=== PATIENT | male | born 1985 | race Caucasian/White ===

== ENCOUNTER 2016-12-19 10:44 | Inpatient (IN) | payer MEDICAID ==
[~2016-12-19] VITALS: Ht 195.6 cm; Wt 98.7 kg
[2016-12-19 11:41] LABS: microscopic required? NO
[2016-12-19 11:50] LABS: UA SPECIFIC GRAVITY <=1.005 (1.005-1.035); urine erythrocyte NEGATIVE (NEGATIVE)
[2016-12-19 11:55] LABS: PLATELET COUNT 213 x10^3mcL (130-400); RED CELL DISTRIBUTION WIDTH 12.1 % (11.5-14.5)
[2016-12-19 11:58] LABS: ALBUMIN 3.8 g/dL (3.4-5.0); ALKALINE PHOSPHATASE 108 U/L (46-116); ALT/SGPT 27 U/L (16-63); AST/SGOT 20 U/L (15-37); BASOPHIL % 0 % (0-2); BILIRUBIN TOTAL 0.8 mg/dL (0.20-1.00); CALCIUM 9.8 mg/dL (8.5-10.1); CARBON DIOXIDE 21.6 mmol/L (21-32); CHLORIDE SERUM 101 mmol/L (98-107); CREATININE SERUM 1.2 mg/dL (0.7-1.3); GFR1 > 60 mL/min; LIPASE 89 IU/L (73-393); POTASSIUM SERUM 3.2 mmol/L (3.5-5.1); SODIUM SERUM 142 mmol/L (136-145); TOTAL PROTEIN, SERUM 7.1 g/dL (6.4-8.2)
[2016-12-19 12:00] LABS: GLUCOSE SERUM 481 mg/dL (74-106)
[2016-12-19 12:04] LABS: AMPHETAMINE QUAL UR NONE DETECTED (NEG <=1000)
[2016-12-19 14:32] VITALS: Ht 195.6 cm; Wt 98.7 kg
[2016-12-19 15:29] LABS: FREE T4 1.61 ng/dL (0.76-1.46); T4(THYROXINE) 10.9 ug/dL (4.7-13.3)
[2016-12-19 15:30] LABS: CHOLESTEROL/HDL RATIO 4.5
[2016-12-19 15:36] LABS: T3 TOTAL 1.13 ng/mL
[2016-12-19 15:48] VITALS: BP 109/69
[2016-12-19 17:26] LABS: CARBON DIOXIDE 24.8 mmol/L (21-32); CHLORIDE SERUM 110 mmol/L (98-107); CREATININE SERUM 0.8 mg/dL (0.7-1.3); GFR1 > 60 mL/min; GLUCOSE SERUM 234 mg/dL (74-106); PHOSPHOROUS 3.2 mg/dL (2.5-4.9); POTASSIUM SERUM 3.7 mmol/L (3.5-5.1); SODIUM SERUM 147 mmol/L (136-145)
[2016-12-19 19:30] VITALS: BP 117/69
[2016-12-19 20:54] LABS: CALCIUM 9.2 mg/dL (8.5-10.1); CARBON DIOXIDE 27.7 mmol/L (21-32); CHLORIDE SERUM 110 mmol/L (98-107); CREATININE SERUM 0.9 mg/dL (0.7-1.3); GFR1 > 60 mL/min; GLUCOSE SERUM 148 mg/dL (74-106); PHOSPHOROUS 4.5 mg/dL (2.5-4.9); SODIUM SERUM 147 mmol/L (136-145)
[2016-12-19 23:04] VITALS: BP 130/88
[2016-12-20 01:09] LABS: CALCIUM 8.6 mg/dL (8.5-10.1); CARBON DIOXIDE 25.5 mmol/L (21-32); CHLORIDE SERUM 112 mmol/L (98-107); CREATININE SERUM 0.9 mg/dL (0.7-1.3); GFR1 > 60 mL/min; GLUCOSE SERUM 132 mg/dL (74-106); MAGNESIUM 1.8 mg/dL (1.8-2.4); PHOSPHOROUS 3.6 mg/dL (2.5-4.9); POTASSIUM SERUM 3.2 mmol/L (3.5-5.1); SODIUM SERUM 146 mmol/L (136-145)
[2016-12-20 03:35] VITALS: BP 120/75
[2016-12-20 05:30] LABS: BASOPHIL % 0.2 % (0-2); PLATELET COUNT 186 x10^3mcL (130-400); RED CELL DISTRIBUTION WIDTH 12.6 % (11.5-14.5)
[2016-12-20 05:37] LABS: CALCIUM 8.7 mg/dL (8.5-10.1); CHLORIDE SERUM 111 mmol/L (98-107); CREATININE SERUM 0.8 mg/dL (0.7-1.3); GFR1 > 60 mL/min; GLUCOSE SERUM 187 mg/dL (74-106); MAGNESIUM 1.5 mg/dL (1.8-2.4); PHOSPHOROUS 4.7 mg/dL (2.5-4.9); POTASSIUM SERUM 3.4 mmol/L (3.5-5.1); SODIUM SERUM 146 mmol/L (136-145)
[2016-12-20 08:06] VITALS: BP 132/97
[2016-12-20 09:18] LABS: CALCIUM 8.7 mg/dL (8.5-10.1); CARBON DIOXIDE 23.1 mmol/L (21-32); CHLORIDE SERUM 108 mmol/L (98-107); CREATININE SERUM 0.9 mg/dL (0.7-1.3); GFR1 > 60 mL/min; GLUCOSE SERUM 260 mg/dL (74-106); MAGNESIUM 1.6 mg/dL (1.8-2.4); POTASSIUM SERUM 3.5 mmol/L (3.5-5.1); SODIUM SERUM 142 mmol/L (136-145)
[2016-12-20 11:52] VITALS: BP 151/88
[2016-12-20 15:43] VITALS: BP 156/88
[2016-12-20 19:45] VITALS: BP 140/67
[2016-12-21 03:22] VITALS: BP 134/76
[2016-12-21 05:27] LABS: CALCIUM 8.4 mg/dL (8.5-10.1); CARBON DIOXIDE 24.8 mmol/L (21-32); CHLORIDE SERUM 106 mmol/L (98-107); CREATININE SERUM 0.9 mg/dL (0.7-1.3); GFR1 > 60 mL/min; GLUCOSE SERUM 276 mg/dL (74-106); MAGNESIUM 1.6 mg/dL (1.8-2.4); POTASSIUM SERUM 3.4 mmol/L (3.5-5.1); SODIUM SERUM 140 mmol/L (136-145)
[2016-12-21 08:00] VITALS: BP 141/95
[2016-12-21] MEDS ORDERED: GLUCOTROL5 MG PO (10:15)
[2016-12-21 10:18] VITALS: BP 141/95
== END 2016-12-21 10:55 | disposition home or self-care (01) | DRG 420 ==
LOC: EDBD 10:44 → ED 10:44 → IC 12:40 → DU 12:40 → IC 14:23
PROVIDERS: Emergency Medicine; ADMIT Family Medicine
DX: E10.10 Type 1 diabetes mellitus with ketoacidosis without coma (principal); N17.0 Acute kidney failure with tubular necrosis; G93.41 Metabolic encephalopathy; E87.6 Hypokalemia; F12.159 Cannabis abuse with psychotic disorder, unspecified; I10 Essential (primary) hypertension; E78.5 Hyperlipidemia, unspecified; Z68.27 Body mass index [BMI] 27.0-27.9, adult; Z91.19 Patient's noncompliance with other medical treatment and regimen
CPT/HCPCS: 36556; 82962; 83880; 84439; B4164; G0480; J1170; J1630; J1642; J1815; J2060; J2270; J3475; J3480; J3490; J7030; Q0092

== ENCOUNTER 2017-01-04 15:01 | Emergency (ER) | payer MEDICAID ==
[~2017-01-04 15:01] MED LIST: GLUCOTROL5 MG PO
[2017-01-04 16:33] LABS: BASOPHIL % 0.4 % (0-2); PLATELET COUNT 260 x10^3mcL (130-400); RED CELL DISTRIBUTION WIDTH 12.2 % (11.5-14.5)
[2017-01-04 16:44] LABS: CARBON DIOXIDE 30.2 mmol/L (21-32); CHLORIDE SERUM 102 mmol/L (98-107); CREATININE SERUM 0.9 mg/dL (0.7-1.3); GFR1 > 60 mL/min; GLUCOSE SERUM 283 mg/dL (74-106); POTASSIUM SERUM 3.9 mmol/L (3.5-5.1); SODIUM SERUM 141 mmol/L (136-145)
[2017-01-04 16:48] LABS: ALBUMIN 3.6 g/dL (3.4-5.0); ALKALINE PHOSPHATASE 89 U/L (46-116); ALT/SGPT 38 U/L (16-63); AST/SGOT 18 U/L (15-37); BILIRUBIN TOTAL 0.54 mg/dL (0.20-1.00); MAGNESIUM 1.8 mg/dL (1.8-2.4); TOTAL PROTEIN, SERUM 7.3 g/dL (6.4-8.2)
[2017-01-04 18:33] LABS: AMPHETAMINE QUAL UR NONE DETECTED (NEG <=1000)
[2017-01-04 19:11] VITALS: BP 129/91
== END 2017-01-04 19:11 | disposition home or self-care (01) ==
LOC: ED 15:01
PROVIDERS: Emergency Medicine
DX: K29.00 Acute gastritis without bleeding (principal); E11.65 Type 2 diabetes mellitus with hyperglycemia; F12.90 Cannabis use, unspecified, uncomplicated; Z79.84 Long term (current) use of oral hypoglycemic drugs
CPT/HCPCS: 82962; J2405; J3490; J7030; Q0092